=== PATIENT | female | born 1985 | race Caucasian/White ===

== ENCOUNTER → 2016-11-12 | Outpatient (REF) | payer OTHER | LOC: M SFHCLERA 11:08 | PROVIDERS: ATTEND Nurse Practitioner Family | DX: R30.0 Dysuria (principal) ==

== ENCOUNTER → 2017-11-01 | Outpatient (REF) | payer OTHER | LOC: M SFHCLERA 12:43 | DX: J02.9 Acute pharyngitis, unspecified (principal) ==

== ENCOUNTER → 2019-06-22 | Outpatient (CLI) | payer BC ==
[2019-06-22 12:43] LABS: BASO % 0.6 % (0.0-1.0); EOS # 0.5 10^3/uL (0.0-0.5); EOS % 7.5 % (0.0-3.0); HEMATOCRIT 44.4 % (36.0-47.0); HEMOGLOBIN 14.7 g/dl (12.0-15.5); LYMPH # 2.3 10^3/uL (1.5-5.0); LYMPH % 34.5 % (24.0-44.0); MEAN CORPUSCULAR HEMOGLOBIN 32.1 pg (27.0-33.0); MEAN CORPUSCULAR HGB CONC 33.1 g/dl (32.0-36.5); MEAN CORPUSCULAR VOLUME 96.9 fl (80.0-96.0); MONO # 0.3 10^3/uL (0.0-0.8); MONO % 4.1 % (0.0-5.0); NEUTROPHILS # 3.6 10^3/uL (1.5-8.5); NEUTROPHILS % 53.2 % (36.0-66.0); PLATELET COUNT, AUTOMATED 224 10^3/uL (150-450); RED BLOOD COUNT 4.58 10^6/uL (4.00-5.40); WHITE BLOOD COUNT 6.8 10^3/uL (4.0-10.0)
[2019-06-22 13:21] LABS: ALBUMIN 4.5 GM/DL (3.2-5.2); ALT/SGPT 14 U/L (12-78); BILIRUBIN,TOTAL 0.7 MG/DL (0.2-1.0); BLOOD UREA NITROGEN 16 MG/DL (7-18); CALCIUM LEVEL 8.9 MG/DL (8.5-10.1); CARBON DIOXIDE LEVEL 26 MEQ/L (21-32); CHLORIDE LEVEL 105 MEQ/L (98-107); CREATININE FOR GFR 0.88 MG/DL (0.55-1.30); FREE T4 0.97 NG/DL (0.76-1.46); GLOMERULAR FILTRATION RATE > 60.0 (>60); GLUCOSE, FASTING 113 MG/DL (70-100); POTASSIUM SERUM 4.4 MEQ/L (3.5-5.1); SODIUM LEVEL 136 MEQ/L (136-145); TOTAL PROTEIN 7.5 GM/DL (6.4-8.2)
== END ==
LOC: M LRY 10:37
PROVIDERS: ATTEND Family Medicine
DX: R03.0 Elevated blood-pressure reading, without diagnosis of hypertension (principal); E06.9 Thyroiditis, unspecified

== ENCOUNTER → 2023-12-31 | Outpatient (CLI) | payer BC ==
[2023-12-31 10:41] LABS: BASO # 0.1 10^3/uL (0.0-0.2); BASO % 0.9 % (0.0-1.0); EOS # 0.4 10^3/uL (0.0-0.5); EOS % 7.6 % (0.0-3.0); HEMATOCRIT 41.7 % (36.0-47.0); LYMPH # 1.9 10^3/uL (1.5-5.0); MEAN CORPUSCULAR HEMOGLOBIN 32.3 pg (27.0-33.0); MEAN CORPUSCULAR HGB CONC 33.6 g/dl (32.0-36.5); MEAN CORPUSCULAR VOLUME 96.3 fl (80.0-96.0); MONO # 0.4 10^3/uL (0.0-0.8); MONO % 6.3 % (2.0-8.0); NEUTROPHILS # 2.9 10^3/uL (1.5-8.5); PLATELET COUNT, AUTOMATED 245 10^3/uL (150-450); RED BLOOD COUNT 4.33 10^6/uL (4.00-5.40); WHITE BLOOD COUNT 5.7 10^3/uL (4.0-10.0)
[2023-12-31 10:49] LABS: HEMOGLOBIN A1c 4.8 % (4.0-6.0)
[2023-12-31 11:08] LABS: ERYTHROCYTE SEDIMENTATION RATE 2 mm/hr (0-20)
[2023-12-31 11:19] LABS: ALBUMIN 4.3 G/DL (3.2-5.2); ALKALINE PHOSPHATASE 61 U/L (46-116); ALT/SGPT 13 U/L (7.0-40); AST/SGOT 10 U/L (<34); BILIRUBIN,TOTAL 0.8 MG/DL (0.3-1.2); BLOOD UREA NITROGEN 12 MG/DL (9-23); CALCIUM LEVEL 8.8 MG/DL (8.5-10.1); CARBON DIOXIDE LEVEL 26 MMOL/L (20-31); CHLORIDE LEVEL 109 MMOL/L (98-107); CHOLESTEROL LEVEL 185 MG/DL (<200); CHOLESTEROL RISK RATIO 3.94 (<5); CREATININE FOR GFR 0.87 MG/DL (0.55-1.30); FREE T4 1.16 NG/DL (0.89-1.76); GLOMERULAR FILTRATION RATE > 60.0 (>58); GLUCOSE, FASTING 81 MG/DL (60-100); HDL CHOLESTEROL 46.9 MG/DL (>40); LDL CHOLESTEROL 128.7 MG/DL (<100); NON-HDL-C 138.1 MG/DL; POTASSIUM SERUM 4.1 MMOL/L (3.5-5.1); SODIUM LEVEL 139 MMOL/L (136-145); THYROID STIMULATING HORMONE 0.964 uIU/ML (0.55-4.78); TOTAL IRON BINDING CAPACITY 264 UG/DL (250-425); TOTAL PROTEIN 7.1 G/DL (5.7-8.2); TOTAL T3 123.6 NG/DL (60.0-181.0); TRIGLYCERIDES LEVEL 47 MG/DL (<150)
[2023-12-31 11:20] LABS: FERRITIN 194.2 NG/ML (7.3-270.7); IRON (FE) 103 UG/DL (50-170)
[2023-12-31 11:21] LABS: TOTAL 25(OH) VITAMIN D 49.1 NG/ML (20.0-100.0)
[2024-01-03 14:22] LABS: ANA SCREEN, IFA NEGATIVE (NEGATIVE)
== END ==
LOC: M WUC 08:09
PROVIDERS: ATTEND Family Medicine
DX: E78.5 Hyperlipidemia, unspecified (principal); R60.9 Edema, unspecified

== ENCOUNTER → 2025-04-03 | Outpatient (REF) | payer BC ==
[2025-04-03 18:23] LABS: BASO # 0.1 10^3/uL (0.0-0.2); BASO % 0.6 % (0.0-1.0); EOS # 0.6 10^3/uL (0.0-0.5); EOS % 7.9 % (0.0-3.0); LYMPH # 2.0 10^3/uL (1.5-5.0); LYMPH % 24.5 % (24.0-44.0); MONO # 0.5 10^3/uL (0.0-0.8); MONO % 6.4 % (2.0-8.0); NEUTROPHILS # 4.8 10^3/uL (1.5-8.5); NEUTROPHILS % 60.3 % (36.0-66.0); PLATELET COUNT, AUTOMATED 284 10^3/uL (150-450)
[2025-04-03 18:28] LABS: ESTRADIOL 65.6 PG/ML; FREE T4 1.03 NG/DL (0.89-1.76); LUTEINIZING HORMONE 3.5 mIU/ML
[2025-04-03 18:29] LABS: PROGESTERONE 3.43 NG/ML
== END ==
LOC: M LAB REF 17:28
PROVIDERS: ATTEND Family Medicine
DX: R89.1 Abnormal level of hormones in specimens from other organs, systems and tissues (principal); N95.1 Menopausal and female climacteric states; E34.9 Endocrine disorder, unspecified; E07.89 Other specified disorders of thyroid; R53.83 Other fatigue